=== PATIENT | male | born 1955 | race Caucasian/White ===

== ENCOUNTER 2022-02-25 09:32 | Inpatient (IN) ==
--- NOTE | 2022-02-19 13:22 | PAT Medication Instructions ---
Medication Instructions Date of Service February 19, 2022 Home Medications amiodarone 200 mg tablet 200 mg PO QAM apixaban 5 mg tablet (Eliquis) 5 mg PO BID aspirin 81 mg tablet,delayed release 81 mg PO QAM fenofibrate 40 mg tablet 48 mg PO QAM gabapentin 300 mg tablet 300 mg PO UD PRN magnesium oxide 400 mg PO QAM metoprolol succinate 25 mg tablet,extended release 24 hr 25 mg PO QAM omeprazole 40 mg capsule,delayed release 40 mg PO QAM potassium chloride 20 mEq oral packet 20 meq PO BID torsemide 20 mg tablet 60 mg PO QAM ASK your prescriber and surgeon apixaban 5 mg tablet (Eliquis) 5 mg PO BID aspirin 81 mg tablet,delayed release 81 mg PO QAM STOP taking 48 hours before surgery fenofibrate 40 mg tablet 48 mg PO QAM DO NOT take the morning of surgery magnesium oxide 400 mg PO QAM potassium chloride 20 mEq oral packet 20 meq PO BID torsemide 20 mg tablet 60 mg PO QAM Take morning of surgery With a small sip of water, OTHERWISE NOTHING TO EAT OR DRINK AFTER MIDNIGHT: amiodarone 200 mg tablet 200 mg PO QAM gabapentin 300 mg tablet 300 mg PO UD PRN (if needed) metoprolol succinate 25 mg tablet,extended release 24 hr 25 mg PO QAM omeprazole 40 mg capsule,delayed release 40 mg PO QAM Take evening before surgery gabapentin 300 mg tablet 300 mg PO UD PRN (if needed) potassium chloride 20 mEq oral packet 20 meq PO BID Other Notes If you have any questions please call us at [phone] or [phone] or [phone] or [phone]
--- NOTE | 2022-02-21 12:57 | Anesthesiology Consultation ---
Date of Service February 21, 2022 Assessment & Plan (1) Encounter for pre-operative examination: - COVID screening: Per assessment on 02/21: No known COVID-19 positive contacts or current COVID-19 related symptoms. Travel screen negative. Patient vaccinated. Patient was Covid positive 01/30/22 (cepheid test scanned into [employer]; was asymptomatic, tested during hospitalization at [facility]). Preop Covid test done 02/21/22 at [facility] was negative. - Cardiology office visit (02/12/22): "Pt was admitted recently with A. fib/RVR, acute combined HF, cardiogenic shock requiring pressor for diuresis and C ovid19. Pt was also found to have large infrarenal AAA was referred to [place] for surgery as outpt. He was also found to have small lung nodule, which PCP is following. He is off of his MERISSA and spironolactone due to TAMARA. He was not discharged on his statin (I suspect due to elevated LFTs which are gradually improving). His JERONIMO is at baseline. His weight and edema have been stable since discharge.. A. fib, persistent. I was previously considering cardioversion once he was on the amiodarone, but that would push back his surgery another 4 weeks before A/C could be held. His rate is relatively controlled today, so I will keep the amiodarone on board for some rate control since BB cannot be increased due to hypotension.. We will switch his BB back to metoprolol succinate for his ICM." - Cardiology note (02/19/22): "Pt is high risk for surgery given prior large MT, ischemic CM, A. fib, but did have recent negative stress test and appears as medically optimized as possible for surgery." - Eliquis instructions per surgeon/prescriber - Case reviewed with Dr. Stout/Dr. Taylor. He feels that patient is okay to proceed with given procedure as scheduled. Chart Review Chart Review: Acceptable Risk for Surgery and Patient seen in Pre Admission Testing Teaching & Discussion Pre-Anesthesia Teaching/Discussion Notes: Instructed NPO after midnight before surgery,except medications with 15 cc of water. Medication instructions provided according to the PAT guidelines. History Surgery Operation Date: 02/25/22 11:00 Proposed Procedures p Percutaneous Endovascular Aneurysm Repair - Gabe Russell MD Height/Weight Height: 5 ft 11 in Weight: 88.5 kg Allergies Allergy/AdvReac Type Severity Reaction Status Date / Time shellfish derived Allergy Unknown Rash Verified 02/25/22 10:00 Medications Home Medications Medication Instructions Recorded Confirmed Last Taken amiodarone 200 mg tablet 200 mg PO QAM 02/19/22 02/25/22 02/25/22 06:30 apixaban 5 mg tablet (Eliquis) 5 mg PO BID 02/19/22 02/25/22 02/22/22 aspirin 81 mg tablet,delayed 81 mg PO QAM 02/19/22 02/25/22 02/22/22 release fenofibrate 40 mg tablet 48 mg PO QAM 02/19/22 02/25/22 02/23/22 gabapentin 300 mg tablet 300 mg PO UD PRN 02/19/22 02/25/22 02/24/22 21:00 magnesium oxide 400 mg PO QAM 02/19/22 02/25/22 02/24/22 09:00 metoprolol succinate 25 mg 25 mg PO QAM 02/19/22 02/25/22 02/25/22 06:30 tablet,extended release 24 hr omeprazole 40 mg capsule,delayed 40 mg PO QAM 02/19/22 02/25/22 02/25/22 06:30 release potassium chloride 20 mEq oral 20 meq PO BID 02/19/22 02/25/22 02/24/22 21:00 packet torsemide 20 mg tablet 60 mg PO QAM 02/19/22 02/25/22 02/24/22 09:00 prednisone 50 mg tablet 50 mg PO DIRECTED 02/25/22 02/25/22 02/24/22 22:30 Active Medications Generic Name Dose Route Start Last Admin Trade Name Freq PRN Reason Stop Dose Admin Lactated Ringer's 1,000 mls @ 80 mls/hr 02/25/22 06:00 02/25/22 10:34 Lr IV 02/25/22 18:29 80 mls/hr .[id number] CHEVY Administration Past Medical History Medical History Abdominal aortic aneurysm 6.2cm Acid reflux Afib Cardiomyopathy Gastritis History of COVID-19 Covid positive ([facility] 01/30/22; cepheid test scanned into [employer]) > asymptomatic HTN (hypertension) Hyperlipidemia Valvular heart disease s/p bioprosthetic AVR (2016) Exercise / Class Metabolic Activity III < 4 Walking/Shop/Light housework (No CP with daily activities (uses walker PRN)) Past Surgical History Surgical History History of aortic valve replacement 2016 ([facility]) History of appendectomy History of cardioversion X2 - MOST RECENT NOV 2021 History of endoscopy History of hernia surgery MULTIPLE History of rotator cuff surgery RIGHT Past Anesthesia History No Hx of Anesthesia Complications and No Family Hx of Anesthesia Complications History of PONV No Hx of PONV and No Hx of Motion Sickness Social History Smoking Status: Never smoker Do You Dip or Chew Tobacco: No Hx Alcohol Use: No substance use type: does not use Review of Systems Patient denies chest pain, fever, chills, cough, wheezing, palpitations. Physical Exam Vital Signs Last Vital Signs Temp 36.6 C 02/25/22 10:05 Pulse 116 H 02/25/22 10:05 Resp 24 02/25/22 10:05 BP 107/72 02/25/22 10:05 Pulse Ox 94 02/25/22 10:05 VITALS BP 97/57 P 83 TEMP WNL SP02 95%RA RESP 22 PHYSICAL Full cervical extension range of motion. Full TMJ range of motion. TMD 4 finger breaths Mallampati Score 2 Dentition: edentulous Lungs: clear throughout to auscultation Cardiac: regular rate, irregular rhythm, no murmurs noted Spine: normal Carotid arteries: negative bruit Extremities: no edema Visibly dyspneic on exam Lab Results Anesthesia Preop Results Results Anesthesia Widget: WBC 11.21 K/uL (4.8-10.8) H 02/21/22 Hgb 16.7 g/dL (14.0-18.0) 02/21/22 Hct 51.3 % (42-52) 02/21/22 Plt 225 K/uL (130-400) 02/21/22 Na 134 mmol/L (136-145) L 02/21/22 K 4.9 mmol/L (3.5-5.1) 02/21/22 Cl 96 mmol/L (98-107) L 02/21/22 CO2 29 mmol/L (21-32) 02/21/22 BUN 28 mg/dl (6-23) H 02/21/22 Creat 1.46 mg/dl (0.6-1.4) H 02/21/22 Glucose Level 117 mg/dl (70-99(Fasting)) H 02/21/22 PT 12.2 Seconds (9.0-12.0) H 02/21/22 PTT 32.5 Seconds (21.0-31.0) H 02/21/22 INR 1.2 (0.9-1.1) H 02/21/22 SARS-CoV-2, RNA, NAAT NEGATIVE (NEGATIVE) 02/25/22 Blood Type AB Positive 02/25/22 Antibody Screen NEGATIVE 02/25/22 Lab Comments: Coags mildly elevated (pt taking Eliquis). At anesthesiologist discretion AM DOS if recheck levels needed. Testing Laboratory Results Blood Type AB Positive 02/25/22 10:13 Antibody Screen NEGATIVE 02/25/22 10:13 Electrocardiogram Date: 02/12/22 A. fib with RVR with PVC sees or aberrantly conducted complexes at 107 bpm. Nonspecific IVCD. Inferior infarct (cited on or before 01/25/2020). Anterior lateral infarct (cited on or before 01/25/2020). Nuclear stress echo done subsequently on 02/14/2022. Stress test was consistent with prior infarct similar to previous exam. And markedly reduced ejection fraction compared to prior study. No significant reversible ischemia was noted. Chest X-Ray Date: 02/21/22 FINDINGS: PA and lateral chest radiographs are obtained No prior studies are available for comparison at the time of dictation. The heart is enlarged noting atherosclerotic calcification of the thoracic aorta. There is evidence of previous cardiac valve surgery. The pulmonary vasculature is noncongested. Enlargement of the central pulmonary arteries suggests pulmonary artery hypertension. Emphysematous change is noted. Nonspecific interstitial thickening is likely chronic. Foci of scarring/atelectasis are seen throughout both lungs. No airspace consolidation or pleural effusion is identified. Indeterminant nodular opacities are suggested at both lung bases. There is no pneumothorax. The skeletal structures are osteopenic. The bony thorax appears intact. IMPRESSION:. Cardiomegaly and emphysema with no acute cardiopulmonary abnormality. Indeterminate nodular opacities are questioned at both lung bases. Follow-up chest CT is recommended for further assessment. Per cardiology records, known pulmonary nodules under surveillance by PCP. Will forward report to PCP for continuity of care. Echocardiogram Date: 01/17/22 LVEF <20%. LV cavity size is moderately to severely increased. Mild hypokinesis of the mid basilar inferoanterior lateral wall seen; otherwise rest of wall severely hypokinetic. Severe RAD. Severe LAD. Moderate MR. Severe TR. Bioprosthetic aortic valve in good position. Leaflets somewhat seen with adequate mobility. Hemodynamics suggest against significant stenosis/regurgitation. Stress Test Date: 02/14/22 Type: nuclear No reversible ischemia seen. Large perfusion abnormality consistent with prior infarct. Rest EF 21%. Diffuse HK. Cardiac Catheterization Date: 04/07/16 Two vessel CAD. Patient to maximize medical therapy.
[~2022-02-25 09:32] MED LIST: LACTATED RINGER'S 1,000 ML IV SCH; ceFAZolin 2000MG 2,000 MG/15 ML SYR IV SCH
[2022-02-25] MEDS ORDERED: fentaNYL citrate 100 MCG/2 ML VIAL IV PRN (12:12)
[2022-02-25] MEDS ORDERED: ONDANSETRON INJ 2 MG/ML 2 ML VIAL IV PRN ×3 (12:12→20:02)
[2022-02-25] MEDS ORDERED: ATROPINE SULFATE 0.1 MG/ML 10ML SYR IV PRN (12:12)
--- NOTE | 2022-02-25 12:16 | History & Physical Report ---
Date of Service February 25, 2022 History of Present Illness Primary Care Provider: NO PCP February 11, 2022 Name: NAT LORENZ [facility] Number: [id number] : 1955 Date of Service: 02/11/2022 Nat Lowry MD [address] [place] [address] Lowry: I had the pleasure of seeing Mr. Nat Lorenz in the Vascular Surgery. Patient is a new patient in consultation for abdominal aortic aneurysm. As you know, this is a very pleasant 66-year-old gentleman who was recently hospitalized at [place] for heart failure exacerbation and atrial fibrillation with rapid ventricular rate. During his hospitalization, he underwent a CT scan of his abdomen. This revealed a 6.2 cm infrarenal abdominal aortic aneurysm. He presents today to discuss repair. He indicates that his recent hospitalization was the 1st time he had heard that he had abdominal aortic aneurysm. He denies abdominal pain or back pain. He indicates that he does have some early fullness with eating. However, he denies postprandial abdominal pain. PAST MEDICAL HISTORY: Notable for atrial fibrillation, COPD (not on home oxygen), hypertension, hyperlipidemia, congestive heart failure, gastroesophageal reflux disease. The patient denies history of chronic kidney disease. However, per review of his records from his recent hospitalization, his creatinine had been elevated to 1.3 to 1.6. It is unclear if what his b aseline status is. However, he was treated for acute kidney injury during the hospitalization. During his hospital stay, he was treated for acute kidney injury and was noted to have what was called an asymptomatic COVID infection that was diagnosed on January 28 with a positive COVID test. SURGICAL HISTORY: Notable for a porcine aortic valve replacement in 2016. He underwent a right rotator cuff repair previously. He reports that he had 9 abdominal hernias repaired. In regard to his family history, he denies history of aneurysms or history of sudden in his family. His father suffered from heart disease. In regard to his social history, he lives with his and his daughter. They live in [place]. His is present for today's evaluation. He is a former smoker with a 60+ pack-year history. He denies alcohol or recreational drug use. He indicates that he has never been a heavy drinker. The patient does endorse an allergy to shellfish. He denies any medication allergies. He indicates that he has never had issues with intravenous contrast in the past. In regard to his home medications, he is on amiodarone, Eliquis (atrial fibrillation), aspirin 81 mg daily, fenofibrate, gabapentin, magnesium oxide, metoprolol, omeprazole, potassium chloride, and torsemide. PHYSICAL EXAMINATION: The oxygen saturation is 97% on room air. His heart rate is 100. His blood pressure is 110/68 on the right and 100/64 on the left. He is accompanied to today's visit by his , who remains in the room for the duration of the interview and examination. He appears anxious and does have some labored breathing with speaking after speaking a few sentences; however, he is awake, alert, and responds to questions appropriately. He is on room air. His pulse is irregular. His abdomen is soft, nontender, nondistended. His bilateral groins are free of rashes. He has palpable femoral pulses bilaterally. His bilateral legs display hyperpigmentation and significant pitting edema. There are a few superficial wounds with some scant serous drainage. I am able to palpate dorsalis pedis pulses bilaterally. Motor and sensory examinations of the bilateral lower extremities are intact. On review of his CT scan, which was performed at [place], this displays an infrarenal abdominal aortic aneurysm which is 6.2 cm in its greatest dimension. There appears to be an adequate neck below the renal arteries for an endograft. The common iliac arteries also do both display adequate landing zone for an endograft bilaterally. In summary, this is a 66-year-old male with an asymptomatic infrarenal abdominal aortic aneurysm which measures 6.2 cm. We discussed endovascular repair with the patient today and he wishes to proceed. 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 Additionally, we would like to check his kidney function and have ordered labs for today. He will need to hold his Eliquis for 48 hours prior to the procedure. Sincerely, I saw and evaluated the patient. Discussed with the resident and agree with the resident's findings and plan as documented in the resident's note. Signature Line Electronic Signature on File Sherin Carter MD Author Signature Dt/Tm: 02/13/2022 10:00 AM Resident Division of Vascular Surgery Electronically Reviewed/Signed by: Gabe Russell MD Cosigner Signature Dt/Tm: 02/13/2022 10:24 AM Paint Line Operator Chad Johansen [facility] [place] [address] [address], [address] [place] [address] ST /CO Result Type: .Outpt Ltr Date of Service: February 11, 2022 00:00 EDT Authorization Status: Final Author or Import Date: MD Emma, Sherin on February 11, 2022 14:49 EDT Verified By: MD Yvonne, Gabe Matias on February 13, 2022 10:24 EDT Encounter info: [id number], [place] [address], Clinic, 02/11/2022 - 02/11/2022 Contributor system: [email or web address] Allergies Allergy/AdvReac Type Severity Reaction Status Date / Time shellfish derived Allergy Unknown Rash Verified 02/25/22 10:00 Home Medications Medication Instructions Recorded Confirmed Type amiodarone 200 mg tablet 200 mg PO QAM 02/19/22 02/25/22 History apixaban 5 mg tablet (Eliquis) 5 mg PO BID 02/19/22 02/25/22 History aspirin 81 mg tablet,delayed 81 mg PO QAM 02/19/22 02/25/22 History release fenofibrate 40 mg tablet 48 mg PO QAM 02/19/22 02/25/22 History gabapentin 300 mg tablet 300 mg PO UD PRN 02/19/22 02/25/22 History magnesium oxide 400 mg PO QAM 02/19/22 02/25/22 History metoprolol succinate 25 mg 25 mg PO QAM 02/19/22 02/25/22 History tablet,extended release 24 hr omeprazole 40 mg capsule,delayed 40 mg PO QAM 02/19/22 02/25/22 History release potassium chloride 20 mEq oral 20 meq PO BID 02/19/22 02/25/22 History packet torsemide 20 mg tablet 60 mg PO QAM 02/19/22 02/25/22 History prednisone 50 mg tablet 50 mg PO DIRECTED 02/25/22 02/25/22 History Past Med/Surg History Medical History Abdominal aortic aneurysm 6.2cm Acid reflux Afib Cardiomyopathy Gastritis History of COVID-19 Covid positive ([facility] 01/30/22; cepheid test scanned into [employer]) > asymptomatic HTN (hypertension) Hyperlipidemia Valvular heart disease s/p bioprosthetic AVR (2015) Surgical History History of aortic valve replacement 2016 ([facility]) History of appendectomy History of cardioversion X2 - MOST RECENT NOV 2021 History of endoscopy History of hernia surgery MULTIPLE History of rotator cuff surgery RIGHT Social History Smoking Status: Never smoker Do You Dip or Chew Tobacco: No; Hx Alcohol Use: No Preferred Language: Mohawk Communication Ability: Effective City Council Member Required: No Beliefs That Will Affect Care: None Current Living Situation: Spouse and Family Other Information That Helps Us Care for You: No Feels Safe at Home: Yes Assistive Devices: Glasses Results & Data ([facility]) Vital Signs (Past 12 Hours) Vital Signs Temp Pulse Resp BP BP Pulse Ox 02/25/22 10:05 36.6 C 116 H 24 111/87 107/72 94
[2022-02-25] MEDS ORDERED: LIDOCAINE 2% 2 ML VIAL/AMP(20MG/ML) INFIL ONE (12:21)
[2022-02-25] MEDS ORDERED: HYDROCORTISONE SOD 100 MG in SYRINGE 0 ML IV STA (12:21)
[2022-02-25] MEDS ORDERED: PROPOFOL IV EMULSION 10 MG/ML 20 ML VIAL IV ONE (12:21)
[2022-02-25] MEDS ORDERED: ONDANSETRON INJ 2 MG/ML 2 ML VIAL ONE (12:21)
[2022-02-25] MEDS ORDERED: ROCURONIUM BROMIDE 10 MG/ML 5 ML VIAL IV ONE (12:21)
[2022-02-25] MEDS ORDERED: fentaNYL citrate 100 MCG/2 ML VIAL ONE (12:22)
[2022-02-25] MEDS ORDERED: MIDAZOLAM HCL 1 MG/ML 2ML VIAL ONE (12:22)
[2022-02-25] MEDS ORDERED: HEPARIN SOD (PORCINE) 1000 UNIT/ML ONE ×2 (14:04→16:46)
[2022-02-25] MEDS ORDERED: PHENYLEPHRINE HCL 10 MG/ML VIAL ONE ×2 (14:04→14:40)
[2022-02-25] MEDS ORDERED: ETOMIDATE 2 MG/ML 20 ML VIAL IV ONE (14:06)
[2022-02-25] MEDS ORDERED: VISIPAQUE IV PRN (15:30)
[2022-02-25] MEDS ORDERED: ARISTA ABSORBABLE HEMOSTAT 3GM TOP ONE (15:31)
[2022-02-25] MEDS ORDERED: GELATIN SPONGE SZ 100 ONE (16:08)
[2022-02-25] MEDS ORDERED: THROMBIN FOR SOLN 20000 UNIT KIT ONE (16:08)
[2022-02-25] MEDS ORDERED: THROMBIN 5000 UNITS KIT TOP ONE (16:10)
[2022-02-25] MEDS ORDERED: GELATIN SPONGE SZ 100 EXT ONE (16:13)
[2022-02-25] MEDS ORDERED: NEOSTIGMINE METHYLSULFATE 1 MG/ML 10ML VIAL ONE (16:41)
[2022-02-25] MEDS ORDERED: GLYCOPYRROLATE 0.2 MG/ML VIAL ONE (16:41)
[2022-02-25] MEDS ORDERED: MoRPHine SULFATE 4 MG/ML 1 ML CARP\\VIAL IV PRN (16:56)
[2022-02-25] MEDS ORDERED: oxyCODONE/ACETAMINOPHEN 5mg/325mg TAB PO PRN (16:56)
[2022-02-25] MEDS ORDERED: NON-FORMULARY MEDICATION (Gabapentin 300 mg Tablet) PO PRN (17:01)
--- NOTE | 2022-02-25 17:07 | Procedure Note ---
Angiogram Post Procedure Fluoroscopy Time (minutes): 17 Radiation (mGy): 274.61 Contrast: 110cc Post Operative Report Pre & Post Diagnosis Operation Date: 02/25/22 11:00 Pre-Op Diagnosis: Abdominal Aortic Aneurysm Post-Op Diagnosis: Abdominal Aortic Aneurysm I identified the patient and participated in the time-out.: Yes Procedure Operation Date: 02/25/22 11:00 Actual Procedures p Percutaneous Endovasular Anerurysm Repair, mechanical closure right femoral artery, exploration of left groin, interposition graft to left common femoral artery with prosthetic(Bilateral) - Gabe Russell MD Surgeon Gabe Russell MD Gas Welder Sherin Saleem MD Estimated Blood Loss 50 Findings Consistent with Post-Op Diagnosis Specimens none Anesthesia Type General Complications none immediate Disposition Accompanied Patient To Recovery: No Disposition: Recovery Room Indications Anil Lorenz is a very pleasant 66-year-old gentleman who was recently hospitalized at [facility] for heart failure exacerbation and atrial fibrillation with rapid ventricular rate. During his hospitalization, he underwent a CT scan of his abdomen. This revealed a 6.2 cm infrarenal abdominal aortic aneurysm. He presents today for endovascular repair of his abdominal aortic aneurysm. Description of Procedure The patient was taken to the endovascular suite. He was transferred over to the angiography table and placed in the supine position. The bilateral groins were prepped and draped in the usual sterile fashion. A team timeout was performed. Under ultrasound guidance the right common femoral artery was accessed with an 18G needle. A J wire was advanced through this. The needle was removed. A small aaron in the skin was made around the wire. A 5F sheath was advanced over the wire. The 5F sheath was removed and a total of three proglide perclose devices were pre-deployed in the access site at the 12 o'clock, 2 o'clock, and 10 o'clock positions. The third device was placed because the first (at the 10 o'clock position) gave a jump during deployment and we were concerned for maldeployment of the device. After the perclose devices were pre deployed an angled glidewire was advanced into the descending thoracic aorta and a short 8F sheath was placed in the right groin. A kumpe catheter was advanced over the wire. The glidewire was removed and a aniceto wire was placed through the catheter. The catheter was removed. Under ultrasound guidance the right common femoral artery was accessed with an 18G needle. A J wire was advanced through this. The needle was removed. A small aaron in the skin was made around the wire. A 5F sheath was advanced over the wire. The 5F sheath was removed and we attempted to place perclose devices but they would not advance into the artery. We tried using a stiffer wire and tried dilating the tract with 6F and 8F sheaths but could not get the perclose device to advance into the artery. The decision was made to cut down on the artery. An approximately 7cm incision in the left groin was made proximally and distally to the sheath. We deepened the incision through the subcutaneous tissues. As we went deeper we encountered quite a significant amount of scar tissue. We did see a few prolene sutures as well. As we approached the artery we noted that our 8F sheath was inserted in the center of a dacron pledget on the anterior wall of the artery, which we felt did explain the failure of the proglide device to pass through the arteriotomy. The proximal and distal common femoral artery were dissected out and slung with rubber vessel loops. The patient was administered systemic heparinization and the vessel loops were pulled tight to occlude the artery. A glidewire was advanced through the sheath into the descending thoracic aorta. A Kumpe catheter was advanced over the glidewire. The glidewire was exchanged for a aniceto wire. The kumpe catheter was removed and a 12F dry seal sheath was advanced into the infrarenal abdominal aorta. On the right we dilated our arterial access using a 12F sheath then a 16F sheath and ultimately placed our 18F dry seal sheath with its tip in the infrarenal aorta. Our main body of our endograft was advanced up the right side into the aorta (Odell 26x14.5x16). A pigtail catheter was advanced on the left side and the wire removed. Power injection was used to image the aorta and bobbi the renal arteries. Our main body of our graft was deployed and repeat power injection s howed it was below both renal arteries. We then cannulated our contralateral gate from the left using a JB2 catheter. The contralateral limb was deployed (Odell 16 x 14.5 x 14) and the ipsilateral limb from the main body of the graft was opened up. The proximal portion of the main body of the graft, the left limb at the gate and at its distal fixation, and the right limb at its distal fixation were ballooned with a Q50 balloon to ensure good stent apposition. Post deployment angiography showed the graft in good position with no type I or III endoleaks and patent renal arteries and hypogastric arteries bilaterally. We then removed our catheter and wire and sheath from the right side and deployed our proglide devices. There was minimal bleeding from the access site and this resolved with about 5 minutes of manual pressure. On the left side we removed our sheath and placed vascular clamps proximally and distally. Where the sheath had gone into the artery the lateral hearn of the artery had been disrupted given the large sheath and small diseased artery. The access site was opened up with banuelos scissors above and below the arteriotomy and the edges of the artery were freshened. We did run a 6-0 prolene along the lateral wall of the artery as this had a longer disruption from the sheath. We then sewed in a bovine pericardial patch over the defect using a running 6-0 prolene suture. Unfortunately at the area of the access the artery was narrowed about 50% even with the patch in place. We then decided to place an interposition graft. This was a 6mm PTFE graft. This was sewn to the proximal and distal common femoral artery with a gore juan c cv5 suture. Prior to completion of the final anastomosis the arteries were allowed to forward and backbleed and the graft was flushed with heparinized saline. The final few stitches were placed for the anastomosis. Vascular clamps were removed. The anastomoses were hemostatic. There was a pulse distal to the bypass in the superficial femoral artery. The left groin cutdown was closed with three layers of 2-0 vicryl suture. The dermis was closed with running 3-0 vicryl suture. The skin was closed with fracisco. A provena wound vac was placed over the incision. The patient tolerated the procedure well and without immediate complication. Dr. Russell was present and scrubbed for the entirety of the procedure. At the conclusion of the case all needle, sponge, and instrument counts were correct. The patient was taken to the recovery room in satisfactory condition. I attest to the content of the Intraoperative Record and any orders documented therein. Any exceptions are noted below.
--- NOTE | 2022-02-25 17:08 | Post Operative Brief Note ---
Immediate Post Op Note v1 Date of Surgery February 25, 2022 Pre & Post Diagnosis Operation Date: 02/25/22 11:00 Pre-Op Diagnosis: Abdominal Aortic Aneurysm Post-Op Diagnosis: Abdominal Aortic Aneurysm I identified the patient and participated in the time-out.: Yes Procedure Operation Date: 02/25/22 11:00 Actual Procedures p Percutaneous Endovasular Anerurysm Repair, mechanical closure right femoral artery, exploration of left groin, interposition graft to left common femoaral artery with prosthetic(Bilateral) - Gabe Russell MD Surgeon Gabe Russell MD Database Programmer MD Bandar Estimated Blood Loss 50 Findings Consistent with Post-Op Diagnosis Drains Delgado Catheter Anesthesia Type General Complications none Disposition Accompanied Patient To Recovery: No Disposition: Recovery Room
[2022-02-25 17:46] LABS: Hemoglobin 14.3 g/dL (14.0-18.0)
--- NOTE | 2022-02-25 18:02 | Anesthesiology Progress Note ---
Date of Service February 25, 2022 Anesthesia Post Procedure Vital Signs Vital Signs: Temp Pulse Pulse Resp BP BP Pulse Ox 02/25/22 18:00 37.0 C 87 20 99/74 L 102/68 92 02/25/22 17:50 88 22 105/80 107/73 94 02/25/22 17:40 92 H 18 111/85 113/78 94 02/25/22 17:30 98 H 18 105/80 107/72 105 H 02/25/22 17:23 36.4 C L 106 H 20 103/81 110/74 100 02/25/22 10:05 36.6 C 116 H 24 111/87 107/72 94 Transfer of Care Handoff Completed per policy Notes Mental Status: alert / awake / arousable Patient Amnestic to Procedure: Yes Nausea / Vomiting: adequately controlled Pain: adequately controlled Airway Patency, RR, SpO2: stable & adequate BP & HR: stable & adequate Hydration State: stable & adequate Anesthetic Complications: no major complications apparent and Pt Satisfied with anesthetic care Notes: The patient is awake and stable. He will be monitored overnight in the ICU. Sign out was given to the ICU attending.
[2022-02-25] MEDS: D5W AND 1/2NSS 1,000 ML IV SCH (19:00)
--- NOTE | 2022-02-25 19:09 | Critical Care Consultation ---
Date of Consultation February 25, 2022 Assessment & Plan (1) Abdominal aortic aneurysm: Impression: 67-year-old male presents to the ICU following a PVAR four 6.2 cm infrarenal aortic aneurysm. Patient admitted to ICU overnight for monitoring. Neuro - [facility] ICU: Negative Cardiac - Infrarenal aortic aneurysmpostop day 1 PVAr. Vascular surgery managing. Will follow recommendations -Hold Eliquis tonight -Avoid hypertension -Continuous monitoring in ICU HTNcontinue MTP A. fibcontinue amiodarone. Hold Eliquis following surgery Systolic heart failure systolicpatient with reduced EF of 20% on most recent echo -Patient does have history of bioprosthetic aortic valve which appears to be in -Continue torsemide, MTP, ASA -Follow-up EKG Respiratory - COPDno home meds seen on medical history. currently without labored breathing. Maintaining oxygen saturations on 2 L nasal cannula without labored breathing. -Continuous monitoring pulse ox GI - GERD RENAL/LYTES - CKD?Creatinine 1.46 on 02/21, unsure of patient's baseline. Was recently treated for TAMARA at outside hospital. -Continue with IV fluid resuscitation -Avoid nephrotoxins and maintain maps greater than 65. Renally adjust medications -Follow BMP in a.m. Replete electrolytes as indicated - Strict I's and O's ENDO - No history of diabetes or thyroid disease ICU hyperglycemic protocol HEME - No signs of bleeding at this time. Follow-up CBC in a.m. ID - Medication for infectious process at this time. Continue with empiric Ancef LINES/IV ACCESS - Peripheral IVs DVT PROPHYLAXIS - SCDs, hold anticoagulation following procedure Thank you for allowing us to participate in the care of this patient. Please refer to my attending physician's documentation for any further recommendations. (2) COPD (chronic obstructive pulmonary disease): (3) GERD (gastroesophageal reflux disease): (4) Afib: (5) Valvular heart disease: (6) Hyperlipidemia: (7) HTN (hypertension): History of Present Illness Attending Physician: Gabe Russell MD History of Present Illness Patient is a 67-year-old male with past medical history of A. fib, COPD, HTN, HLD, diastolic heart failure, GERD, and former smoker (60+ packs per year). Patient had recently been treated at [facility] for CHF exacerbation and A. fib with RVR, and was found to have a 6.2 cm infrarenal aortic aneurysm. Patient was seen by vascular surgery and was scheduled for a PVAR for which she now presents to the ICU postop day 1. On arrival to the ICU the patient is alert and oriented. He does complain of lower back and is currently receiving pain medications. He denies any headache, dizziness, visual changes, recent illness or fevers, sore throat, shortness of breath, cough, wheezing, chest pain, palpitations, abdominal pain, nausea or vomiting or diarrhea. He denies any swelling in the hands or feet. Patient to remain in ICU for monitoring following procedure overnight. Allergies Allergy/AdvReac Type Severity Reaction Status Date / Time shellfish derived Allergy Unknown Rash Verified 02/25/22 10:00 Home Medications Medication Instructions Recorded Confirmed Type amiodarone 200 mg tablet 200 mg PO QAM 02/19/22 02/25/22 History apixaban 5 mg tablet (Eliquis) 5 mg PO BID 02/19/22 02/25/22 History aspirin 81 mg tablet,delayed 81 mg PO QAM 02/19/22 02/25/22 History release fenofibrate 40 mg tablet 48 mg PO QAM 02/19/22 02/25/22 History gabapentin 300 mg tablet 300 mg PO UD PRN 02/19/22 02/25/22 History magnesium oxide 400 mg PO QAM 02/19/22 02/25/22 History metoprolol succinate 25 mg 25 mg PO QAM 02/19/22 02/25/22 History tablet,extended release 24 hr omeprazole 40 mg capsule,delayed 40 mg PO QAM 02/19/22 02/25/22 History release potassium chloride 20 mEq oral 20 meq PO BID 02/19/22 02/25/22 History packet torsemide 20 mg tablet 60 mg PO QAM 02/19/22 02/25/22 History prednisone 50 mg tablet 50 mg PO DIRECTED 02/25/22 02/25/22 History Patient History Medical History (Updated 02/25/22 @ 22:39 by TOSHIA Schmitt) Abdominal aortic aneurysm 6.2cm Acid reflux Afib Cardiomyopathy COPD (chronic obstructive pulmonary disease) Gastritis GERD (gastroesophageal reflux disease) History of COVID-19 Covid positive ([facility] 01/30/22; cepheid test scanned into NONO) > asymptomatic HTN (hypertension) Hyperlipidemia Valvular heart disease s/p bioprosthetic AVR (2016) Surgical History History of aortic valve replacement 2016 ([facility]) History of appendectomy History of cardioversion X2 - MOST RECENT NOV 2021 History of endoscopy History of hernia surgery MULTIPLE History of rotator cuff surgery RIGHT Social History Smoking Status: Former smoker Cigarettes Per Day: 1 pack; Smoking End Date: 6 years ago; Second Hand Exposure: No; Do You Dip or Chew Tobacco: No (Former); Tobacco Cessation Education Requested by Patient: No Hx Alcohol Use: No Hx Substance Use: No Preferred Language: Italian Communication Ability: Effective Pen Or Pencil Assembly Machine Operator Required: No Beliefs That Will Affect Care: None Current Living Situation: Spouse Other Information That Helps Us Care for You: No Feels Safe at Home: Yes Safety Concerns: Feels Safe At This Time Assistive Devices: Glasses and Walker Review of Systems Review of Systems: All systems reviewed & are unremarkable except as noted in HPI & below Physical Exam Constitutional: cooperative and comfortable Eyes: PERRL, conjunctivae normal, anicteric sclerae ENMT: external ear and nose normal, oropharynx normal Neck: trachea midline, no thyromegaly Respiratory: normal respiratory effort, lungs clear to auscultation Cardiovascular: RRR, no murmur, no edema Heart Sounds: normal S1 and normal S2; no murmur Vessels: no JVD Extremities: no edema Gastrointestinal (Abdomen): normal bowel sounds, soft, nontender, no hepatosplenomegaly Musculoskeletal: no cyanosis or clubbing, extremities motor strength 5/5 Skin: no rashes, warm and dry Neurologic: PERRL, EOMI, accommodation nl, no face palsy, no dysarthria Psychiatric: A+Ox3, euthymic affect Results & Data Results & Data ([facility]) Vital Signs (Past 12 Hours) Vital Signs Temp Pulse Pulse Resp BP BP Pulse Ox 02/25/22 18:31 36.5 C 82 20 103/72 95 02/25/22 18:10 82 18 96/66 L 99/63 L 95 02/25/22 18:00 37.0 C 87 20 99/74 L 102/68 92 02/25/22 17:50 88 22 105/80 107/73 94 02/25/22 17:40 92 H 18 111/85 113/78 94 02/25/22 17:30 98 H 18 105/80 107/72 105 H 02/25/22 17:23 36.4 C L 106 H 20 103/81 110/74 100 02/25/22 10:05 36.6 C 116 H 24 111/87 107/72 94 Coding Level of Care Code 95883 Inpt Consult Level 3 Diagnoses COPD (chronic obstructive pulmonary disease) J44.9 GERD (gastroesophageal reflux disease) K21.9 Abdominal aortic aneurysm I71.4 Afib I48.91 Valvular heart disease I38 Hyperlipidemia E78.5 HTN (hypertension) I10
[2022-02-25] MEDS ORDERED: MoRPHine SULFATE 2 MG/ML CARP IV STA (19:20)
[2022-02-25] MEDS ORDERED: MoRPHine SULFATE 2 MG/ML CARP ONE (19:21)
[2022-02-25] MEDS: ceFAZolin 2000MG 2,000 MG/15 ML SYR IV SCH (20:21)
[2022-02-25] MEDS: POTASSIUM CHLORIDE PWD 20 MEQ PACK PO SCH (21:29)
[2022-02-26] MEDS: D5W AND 1/2NSS 1,000 ML IV SCH (03:03)
[2022-02-26] MEDS: ceFAZolin 2000MG 2,000 MG/15 ML SYR IV SCH (05:14)
[2022-02-26 05:19] LABS: Basophils # (auto) 0.01 K/uL (0-0.2); Basophils % (auto) 0.1 %; Eosinophils # (auto) 0.01 K/uL (0-0.5); Eosinophils % (auto) 0.1 %; Hematocrit (blood only) 40.9 % (42-52); Hemoglobin 13.2 g/dL (14.0-18.0); Immature Granulocytes # (auto) 0.08 K/uL (0.00-0.02); Immature Granulocytes % (auto) 0.5 %; Lymphocytes # (auto) 2.41 K/uL (1.2-3.4); Lymphocytes % (auto) 13.6 %; Mean Corpuscular Hemoglobin 26.3 pg (25-34); Mean Corpuscular Hgb Conc 32.3 g/dL (32-36); Mean Corpuscular Volume 81.6 fL (80-100); Monocytes # (auto) 1.71 K/uL (0.11-0.59); Monocytes % (auto) 9.6 %; Neutrophils # (auto) 13.54 K/uL (1.4-6.5); Neutrophils % (auto) 76.1 %; Platelet Count 201 K/uL (130-400); RDW Coefficient of Variation 18.1 % (11.5-14.5); Red Blood Count 5.01 M/uL (4.7-6.1); White Blood Count 17.76 K/uL (4.8-10.8)
[2022-02-26 05:35] LABS: BUN Creatinine Ratio 22.4 (10-20); Calcium 8.6 mg/dl (8.5-10.1); Creatinine Clr Calc Pharmacy 79.7 ml/min; Est GFR (African American) 83.4 ml/min; Potassium 4.2 mmol/L (3.5-5.1)
[2022-02-26] MEDS: ASPIRIN 81 MG ECTAB PO SCH (07:47)
[2022-02-26] MEDS: METOPROLOL SUCC 25MG EXT REL TAB PO SCH (07:48)
[2022-02-26] MEDS: MAGNESIUM OXIDE 400 MG TAB PO SCH (07:48)
[2022-02-26] MEDS: AMIODARONE 200 MG TAB PO SCH (07:48)
[2022-02-26] MEDS: APIXABAN 5 MG TABLET PO SCH ×2 (07:48→21:03)
[2022-02-26] MEDS: TORSEMIDE 20 MG TAB PO SCH (07:49)
[2022-02-26] MEDS: PANTOprazole 40 MG TAB PO SCH (07:49)
[2022-02-26] MEDS: POTASSIUM CHLORIDE PWD 20 MEQ PACK PO SCH ×2 (07:49→21:03)
[2022-02-26] MEDS ORDERED: FENOFIBRATE 40 MG PO SCH (09:00)
--- NOTE | 2022-02-26 09:47 | XRay Report ---
XR chest 1V portable HISTORY: Abnormal chest x-ray. Follow-up. COMPARISON: Chest 02/21/2022. FINDINGS: No pneumothorax. Cardiac silhouette is top normal in size. The upper lung zones are clear. Nodular density within the right midlung zone favors a nipple shadow. Small nodular density within th e left lower lobe adjacent to the cardiac apex persists. This may represent atelectasis or scarring. No new focal lung consolidations to suggest pneumonia. There are surgical clips overlying the right h ilum. No pleural effusions. Emphysema. IMPRESSION: 1. Persistent small nodular density at the base of the left lower lobe. Continued one month chest x-r ay follow-up recommended. 2. The right lung nodular density favors a nipple shadow. 3. Emphysema. ACT 112: Negative or not required by law. Electronically signed by: Rob Malave M.D. 02/26/2022 9:45 AM
--- NOTE | 2022-02-26 10:45 | Critical Care Progress Note ---
Date of Service February 26, 2022 Assessment & Plan (1) COPD (chronic obstructive pulmonary disease): (2) Abdominal aortic aneurysm: (3) Valvular heart disease: (4) GERD (gastroesophageal reflux disease): Plan: Impression: 67-year-old male presents to the ICU following a PVAR four 6.2 cm infrarenal aortic aneurysm. Patient admitted to ICU overnight for monitoring. Neuro - [facility] ICU: Negative Cardiac - Infrarenal aortic aneurysm02/25/22 PVAr. Vascular surgery managing. Will follow recommendations -Avoid hypertension HTNcontinue MTP A. fibcontinue amiodarone Systolic heart failure systolicpatient with reduced EF of 20% on most recent echo -Patient does have history of bioprosthetic aortic valve which appears to be in -Continue torsemide, MTP, ASA Respiratory - COPDno home meds seen on medical history. currently without labored breathing. Maintaining oxygen saturations on 2 L nasal cannula without labored breathing. -Start the patient on Anoro GI - GERD RENAL/LYTES - CKD?Creatinine 1.46 on 02/21, unsure of patient's baseline. Was recently treated for TAMARA at outside hospital. -Avoid nephrotoxins and maintain maps greater than 65. Renally adjust medications - Strict I's and O's ENDO - No history of diabetes or thyroid disease ICU hyperglycemic protocol HEME - No signs of bleeding at this time ID - Medication for infectious process at this time. Continue with empiric Ancef --Prophylaxis VTE: Apixaban GI: Protonix Lines: Right radial, peripheral Diet: Cardiac Plan: In/out: +3.4 L, urine output 900 mL DC IV fluids. Patient ejection fraction is on the lower side. I would not like the patient to be on any more IV fluids He is supposed to get torsemide 60 mg today. Keep a close eye on urine output. Consider a dose of Lasix on top of torsemide which is getting if the patient complains of shortness of breath Patient's blood pressure is on the softer side. This is chronically like this. Continue with O2 supplementation to keep oxygen saturation between 88-92%. Start the patient on Anoro to be used on a daily basis H&H is stable. DC arterial line and Delgado catheter prior to downgrade Patient seems to hemodynamically stable to be downgraded to medical floor Please note the above document was generated using voice recognition software. It may contain grammatical, syntax or spelling errors.Any formal questions or concerns about the content, text or information contained within the body of this dictation should be directly addressed to the provider for clarification. Admission and Anticipated Discharge Date Admission Date: February 25, 2022 Subjective Patient seen and examined at bedside. No acute distress, no episodes overnight Denies any headache, no shortness of breath, no nausea, no vomiting He says that he is doing well overnight comfortably Denies any abdominal pain. Fair appetite. Review of Systems Review of Systems: All systems reviewed & are unremarkable except as noted in HPI & below Physical Exam Physical Exam: Constitutional: No acute distress HEENT: EOMI, PERRLA Respiratory system: Decreased antibiotic, no wheeze, no rhonchi, positive crackles bilaterally CVS: S1-S2 positive, distant heart sounds Abdomen: Soft, nontender, nondistended, positive bowel sounds x4 Extremities: +2 pulses bilaterally radialis/ dorsalis pedis, no cyanosis, +1 pitting edema bilateral lower extremity Neuro: Awake alert oriented x3 Psych: Normal mood and affect G/U: Positive Delgado Left inguinal wound VAC in place Skin: no rashes, warm and dry Lymphatic: no cervical or axillary lymphadenopathy Results & Data Results & Data ([facility]) Vital Signs (Past 12 Hours) Vital Signs Temp Pulse Resp BP Pulse Ox 02/26/22 08:30 93 H 20 95 02/26/22 08:00 36.8 C 86 22 95 02/26/22 07:31 98 H 19 86/61 L 96 02/26/22 07:30 81 20 96 02/26/22 07:15 88 27 H 92/66 L 96 02/26/22 07:00 89 23 90/71 L 96 02/26/22 03:46 35.7 C L 84 14 95/61 L 97 02/26/22 03:40 91 H 22 97 02/26/22 03:31 88 24 97/73 L 97 02/26/22 03:30 91 H 22 97 02/26/22 03:20 84 12 97 02/26/22 03:15 87 18 101/71 97 02/26/22 03:10 89 14 96 02/26/22 03:00 81 23 93/74 L 96 02/26/22 02:50 83 14 98 02/26/22 02:45 83 16 93/74 L 97 02/26/22 02:40 90 13 97 02/26/22 02:30 89 16 92/68 L 96 02/26/22 02:20 84 11 L 97 02/26/22 02:15 88 15 88/67 L 97 02/26/22 02:10 82 14 96 02/26/22 02:00 83 17 98 02/26/22 01:50 89 14 97 02/26/22 01:45 90 12 97/78 L 97 02/26/22 01:40 89 17 96 02/26/22 01:30 88 15 100/74 97 02/26/22 01:20 92 H 13 97 02/26/22 01:15 86 16 95/81 L 97 02/26/22 01:10 93 H 21 96 02/26/22 01:01 94 H 14 95/80 L 97 02/26/22 01:00 87 12 96 02/26/22 00:50 90 11 L 97 02/26/22 00:40 92 H 11 L 98 02/26/22 00:31 101 H 12 100/83 99 02/26/22 00:30 97 H 12 99 02/26/22 00:20 95 H 13 97 02/26/22 00:15 97 H 13 93/80 L 99 02/26/22 00:10 94 H 16 99 02/26/22 00:00 96 H 18 104/87 100 02/25/22 23:58 35.7 C L 02/25/22 23:50 100 H 18 98 02/25/22 23:46 86 16 95/78 L 02/25/22 23:40 93 H 18 81 L 02/25/22 23:35 89 02/25/22 23:31 85 16 101/80 96 02/25/22 23:30 90 18 94 02/25/22 23:20 86 15 98 02/25/22 23:15 94 H 24 102/82 95 02/25/22 23:10 79 20 95 02/25/22 23:00 88 17 94/77 L 97 02/25/22 22:50 93 H 23 88 L 02/25/22 22:45 89 15 99/80 L 93 Laboratory Results 02/26/22 05:09 02/26/22 05:09 Coding Level [facility] Diagnoses COPD (chronic obstructive pulmonary disease) J44.9 Abdominal aortic aneurysm I71.4 Valvular heart disease I38 GERD (gastroesophageal reflux disease) K21.9
--- NOTE | 2022-02-26 13:14 | Surgery Progress Note ---
Date of Service February 26, 2022 Assessment & Plan (1) Abdominal aortic aneurysm: Plan: Pt now POD #1 after EVAR requiring L groin cutdown and femoral artery interposition graft. Pt overall doing well, but has been mildly tachycardic and hypotensive. Pt discussed with Dr Russell, advises IVF and change to PCU status for continued monitoring. Admission and Anticipated Discharge Date Admission Date: February 25, 2022 Subjective 67 yo m POD #1 after EVAR with L groin cutdown and interposition graft, seen in f/u today. Pt admits some L groin discomfort and states his back/buttocks are hurting from being in bed for so long. Denies JOSEPH, chest pain, SOB, N/V, leg pain, other complaints. Review of Systems Review of Systems: All systems reviewed & are unremarkable except as noted in HPI & below Physical Exam Constitutional: well developed, + thin, cooperative and comfortable; not in distress Respiratory: normal respiratory effort Auscultation: lungs clear to auscultation bilaterally and + diminished lung sounds Cardiovascular: Rate/Rhythm: + tachycardic Vessels: posterior tibial pulses present, dorsalis pedis pulses present and brachial pulses present; + abnormal peripheral pulses Extremities: normal capillary refill; no edema Gastrointestinal (Abdomen): Inspection/Auscultation: abdomen normal to inspection and normal bowel sounds Percussion/Palpation: abdomen soft; abdomen nontender Musculoskeletal: no cyanosis or clubbing, extremities motor strength 5/5 Skin: no rashes, warm and dry + incision (L groin incision prevena wound vac in place) Neurologic: moves all extremities and awake; no focal motor deficits and not confused Psychiatric: A+Ox3, euthymic affect Results & Data ([facility]) Vital Signs (Past 12 Hours) Vital Signs Temp Pulse Resp BP Pulse Ox 02/26/22 08:30 93 H 20 95 02/26/22 08:00 36.8 C 86 22 95 02/26/22 07:31 98 H 19 86/61 L 96 02/26/22 07:30 81 20 96 02/26/22 07:15 88 27 H 92/66 L 96 02/26/22 07:00 89 23 90/71 L 96 02/26/22 03:46 35.7 C L 84 14 95/61 L 97 02/26/22 03:40 91 H 22 97 02/26/22 03:31 88 24 97/73 L 97 02/26/22 03:30 91 H 22 97 02/26/22 03:20 84 12 97 02/26/22 03:15 87 18 101/71 97 02/26/22 03:10 89 14 96 02/26/22 03:00 81 23 93/74 L 96 02/26/22 02:50 83 14 98 02/26/22 02:45 83 16 93/74 L 97 02/26/22 02:40 90 13 97 02/26/22 02:30 89 16 92/68 L 96 02/26/22 02:20 84 11 L 97 02/26/22 02:15 88 15 88/67 L 97 02/26/22 02:10 82 14 96 02/26/22 02:00 83 17 98 02/26/22 01:50 89 14 97 02/26/22 01:45 90 12 97/78 L 97 02/26/22 01:40 89 17 96 02/26/22 01:30 88 15 100/74 97 02/26/22 01:20 92 H 13 97 02/26/22 01:15 86 16 95/81 L 97 02/26/22 01:10 93 H 21 96
[2022-02-26] MEDS: UMECLIDINIUM/VILANTEROL 62.5/25MCG 7 PUFFS/INHALER INH SCH (14:14)
[2022-02-26] MEDS: SODIUM CHLORIDE 0.9% 1000ML 1,000 ML IV SCH ×2 (14:14→16:42)
--- NOTE | 2022-02-27 05:58 | Electrocardiogram Report ---
Test Reason : Blood Pressure : / mmHG Vent. Rate : 080 BPM Atrial Rate : 394 BPM P-R Int : 000 ms QRS Dur : 122 ms QT Int : 458 ms P-R-T Axes : 000 076 133 degrees QTc Int : 528 ms Atrial fibrillation with premature ventricular or aberrantly conducted complexes Inferolateral infarct Non-specific intra-ventricular conduction block Abnormal ECG No previous ECGs available Confirmed by Claudy Vera ([id number]) on 02/27/2022 5:58:05 AM Referred By: Gabe Russell Confirmed By:Claudy Vera
[2022-02-27 06:04] LABS: Basophils # (auto) 0.02 K/uL (0-0.2); Basophils % (auto) 0.2 %; Eosinophils # (auto) 0.09 K/uL (0-0.5); Eosinophils % (auto) 0.8 %; Hematocrit (blood only) 38.5 % (42-52); Hemoglobin 12.5 g/dL (14.0-18.0); Immature Granulocytes # (auto) 0.08 K/uL (0.00-0.02); Immature Granulocytes % (auto) 0.7 %; Lymphocytes # (auto) 2.12 K/uL (1.2-3.4); Lymphocytes % (auto) 18.6 %; Mean Corpuscular Hemoglobin 26.1 pg (25-34); Mean Corpuscular Hgb Conc 32.5 g/dL (32-36); Mean Corpuscular Volume 80.4 fL (80-100); Mean Platelet Volume 11.2 fL (7.4-10.4); Monocytes # (auto) 1.51 K/uL (0.11-0.59); Monocytes % (auto) 13.2 %; Neutrophils # (auto) 7.59 K/uL (1.4-6.5); Neutrophils % (auto) 66.5 %; Platelet Count 168 K/uL (130-400); RDW Coefficient of Variation 18.2 % (11.5-14.5); Red Blood Count 4.79 M/uL (4.7-6.1); White Blood Count 11.41 K/uL (4.8-10.8)
[2022-02-27 06:18] LABS: Calcium 8.2 mg/dl (8.5-10.1); Creatinine Clr Calc Pharmacy 71.4 ml/min; Est GFR (African American) 74.1 ml/min; Est GFR (Non-African American) 63.9 ml/min; Potassium 3.8 mmol/L (3.5-5.1)
[2022-02-27] MEDS: APIXABAN 5 MG TABLET PO SCH (09:34)
[2022-02-27] MEDS: AMIODARONE 200 MG TAB PO SCH (09:34)
[2022-02-27] MEDS: ASPIRIN 81 MG ECTAB PO SCH (09:34)
[2022-02-27] MEDS: PANTOprazole 40 MG TAB PO SCH (09:35)
[2022-02-27] MEDS: TORSEMIDE 20 MG TAB PO SCH (09:35)
[2022-02-27] MEDS: MAGNESIUM OXIDE 400 MG TAB PO SCH (09:35)
[2022-02-27] MEDS: METOPROLOL SUCC 25MG EXT REL TAB PO SCH (09:35)
[2022-02-27] MEDS: POTASSIUM CHLORIDE PWD 20 MEQ PACK PO SCH (09:36)
[2022-02-27] MEDS: UMECLIDINIUM/VILANTEROL 62.5/25MCG 7 PUFFS/INHALER INH SCH (09:36)
--- NOTE | 2022-02-27 14:28 | Surgery Progress Note ---
Date of Service February 27, 2022 Assessment & Plan (1) Abdominal aortic aneurysm: Plan: Pt now POD #2 after EVAR requiring L groin cutdown and femoral artery interposition graft. Pt overall doing well. Discussed with Dr Russell today. Will d/c home. Admission and Anticipated Discharge Date Admission Date: February 25, 2022 Subjective 67 yo m POD #2 after EVAR with L groin cutdown and interposition graft, seen in f/u today. Pt admits some L groin discomfort but denies any other new complaints. Denies JOSEPH, chest pain, SOB, N/V, leg pain, other complaints. Review of Systems Review of Systems: All systems reviewed & are unremarkable except as noted in HPI & below Physical Exam Constitutional: well developed, + thin, cooperative and comfortable; not in distress Respiratory: normal respiratory effort Auscultation: lungs clear to auscultation bilaterally and + diminished lung sounds Cardiovascular: Rate/Rhythm: + tachycardic Vessels: posterior tibial pulses present, dorsalis pedis pulses present and brachial pulses present; + abnormal peripheral pulses Extremities: normal capillary refill; no edema Gastrointestinal (Abdomen): Inspection/Auscultation: abdomen normal to inspection and normal bowel sounds Percussion/Palpation: abdomen soft; abdomen nontender Musculoskeletal: no cyanosis or clubbing, extremities motor strength 5/5 Skin: no rashes, warm and dry + incision (L groin incision prevena wound vac in place. R groin without hematoma) Neurologic: moves all extremities and awake; no focal motor deficits and not confused Psychiatric: A+Ox3, euthymic affect Results & Data ([facility]) Vital Signs (Past 12 Hours) Vital Signs Temp Pulse Pulse Resp BP Pulse Ox 02/27/22 12:00 36.4 C L 100 H 23 93/74 L 93 02/27/22 09:31 36.2 C L 91 H 24 84/45 L 93 02/27/22 08:00 83 02/27/22 04:16 36.4 C L 83 16 99/67 L 96
--- NOTE | 2022-02-28 09:41 | Discharge Summary ---
Date of Service February 28, 2022 Admission HPI Per Admitting Provider February 11, 2022 Name: NAT LORENZ [facility] [place] Number: [id number] : 1955 Date of Service: 02/11/2022 Nat Lowry MD [address] [place] [address] Lowry: I had the pleasure of seeing Mr. Nat Lorenz in the Vascular Surgery. Patient is a new patient in consultation for abdominal aortic aneurysm. As you know, this is a very pleasant 66-year-old gentleman who was recently hospitalized at [place] for heart failure exacerbation and atrial fibrillation with rapid ventricular rate. During his hospitalization, he underwent a CT scan of his abdomen. This revealed a 6.2 cm infrarenal abdominal aortic aneurysm. He presents today to discuss repair. He indicates that his recent hospitalization was the 1st time he had heard that he had abdominal aortic aneurysm. He denies abdominal pain or back pain. He indicates that he does have some early fullness with eating. However, he denies postprandial abdominal pain. PAST MEDICAL HISTORY: Notable for atrial fibrillation, COPD (not on home oxygen), hypertension, hyperlipidemia, congestive heart failure, gastroesophageal reflux disease. The patient denies history of chronic kidney d isease. However, per review of his records from his recent hospitalization, his creatinine had been elevated to 1.3 to 1.6. It is unclear if what his baseline status is. However, he was treated for acute kidney injury during the hospitalization. During his hospital stay, he was treated for acute kidney injury and was noted to have what was called an asymptomatic COVID infection that was diagnosed on January 28 with a positive COVID test. SURGICAL HISTORY: Notable for a porcine aortic valve replacement in 2016. He underwent a right rotator cuff repair previously. He reports that he had 9 abdominal hernias repaired. In regard to his family history, he denies history of aneurysms or history of sudden in his family. His father suffered from heart disease. In regard to his social history, he lives with his and his daughter. They live in [place]. His is present for today's evaluation. He is a former smoker with a 60+ pack-year history. He denies alcohol or recreational drug use. He indicates that he has never been a heavy drinker. The patient does endorse an allergy to shellfish. He denies any medication allergies. He indicates that he has never had issues with intravenous contrast in the past. In regard to his home medications, he is on amiodarone, Eliquis (atrial fibrillation), aspirin 81 mg daily, fenofibrate, gabapentin, magnesium oxide, metoprolol, omeprazole, potassium chloride, and torsemide. PHYSICAL EXAMINATION: The oxygen saturation is 97% on room air. His heart rate is 100. His blood pressure is 110/68 on the right and 100/64 on the left. He is accompanied to today's visit by his , who remains in the room for the duration of the interview and examination. He appears anxious and does have some labored breathing with speaking after speaking a few sentences; however, he is awake, alert, and responds to questions appropriately. He is on room air. His pulse is irregular. His abdomen is soft, nontender, nondistended. His bilateral groins are free of rashes. He has palpable femoral pulses bilaterally. His bilateral legs display hyperpigmentation and significant pitting edema. There are a few superficial wounds with some scant serous drainage. I am able to palpate dorsalis pedis pulses bilaterally. Motor and sensory examinations of the bilateral lower extremities are intact. On review of his CT scan, which was performed at [place], this displays an infrarenal abdominal aortic aneurysm which is 6.2 cm in its greatest dimension. There appears to be an adequate neck below the renal arteries for an endograft. The common iliac arteries also do both display adequate landing zone for an endograft bilaterally. In summary, this is a 66-year-old male with an asymptomatic infrarenal abdominal aortic aneurysm which measures 6.2 cm. We discussed endovascular repair with the patient today and he wishes to proceed. He did request that he see his ordained minister prior to the procedures to ensure that he is optimized from a heart standpoint. Additionally, we would like to check his kidney function and have ordered labs for today. He will need to hold his Eliquis for 48 hours prior to the procedure. Sincerely, I saw and evaluated the patient. Discussed with the resident and agree with the resident's findings and plan as documented in the resident's note. Signature Line Electronic Signature on File Sherin Carter MD Author Signature Dt/Tm: 02/13/2022 10:00 AM Resident Division of Vascular Surgery Electronically Reviewed/Signed by: Gabe Russell MD Cosigner Signature Dt/Tm: 02/13/2022 10:24 AM [employer] Clerk Chad Johansen [facility] [address], [address] [place] [address] ST /CO Result Type: .Outpt Ltr Date of Service: February 11, 2022 00:00 EDT Authorization Status: Final Author or Import Date: MD Emma, Sherin on February 11, 2022 14:49 EDT Verified By: MD Yvonne, Gabe Matias on February 13, 2022 10:24 EDT Encounter info: [id number], [facility], Clinic, 02/11/2022 - 02/11/2022 Contributor system: [id number] Admission Exam Per Admitting Provider PHYSICAL EXAMINATION: The oxygen saturation is 97% on room air. His heart rate is 100. His blood pressure is 110/68 on the right and 100/64 on the left. He is accompanied to today's visit by his , who remains in the room for the duration of the interview and examination. He appears anxious and does have some labored breathing with speaking after speaking a few sentences; however, he is awake, alert, and responds to questions appropriately. He is on room air. His pulse is irregular. His abdomen is soft, nontender, nondistended. His bilateral groins are free of rashes. He has palpable femoral pulses bilaterally. His bilateral legs display hyperpigmentation and significant pitting edema. There are a few superficial wounds with some scant serous drainage. I am able to palpate dorsalis pedis pulses bilaterally. Motor and sensory examinations of the bilateral lower extremities are intact. Principal Diagnosis 1. s/p EVAR with L groin cutdown and femoral artery prosthetic interposition graft 2. AAA Discharge Exam Constitutional well developed, + thin, cooperative and comfortable; not in distress Respiratory normal respiratory effort Auscultation: lungs clear to auscultation bilaterally and + diminished lung sounds Cardiovascular Rate/Rhythm: + tachycardic Vessels: posterior tibial pulses present, dorsalis pedis pulses present and brachial pulses present; + abnormal peripheral pulses Extremities: normal capillary refill; no edema Gastrointestinal (Abdomen) Inspection/Auscultation: abdomen normal to inspection and normal bowel sounds Percussion/Palpation: abdomen soft; abdomen nontender Musculoskeletal no cyanosis or clubbing, extremities motor strength 5/5 Skin no rashes, warm and dry + incision (L groin incision prevena wound vac in place. R groin without hematoma) Neurologic moves all extremities and awake; no focal motor deficits and not confused Psychiatric A+Ox3, euthymic affect Discharge Data Allergies Allergy/AdvReac Type Severity Reaction Status Date / Time shellfish derived Allergy Intermediate Rash Verified 02/26/22 07:54 Consultations 02/25/22 16:56 Consult Licensed Acupuncturist Routine Procedures Performed Operation Date: 02/25/22 11:00 Actual Procedures p Percutaneous Endovasular Anerurysm Repair, mechanical closure right femoral artery, exploration of left groin, interposition graft to left common femoaral artery with prosthetic (Bilateral)(Bilateral) - Gabe Russell MD Ordered Studies 02/25/22 07:02 EV AAA repair aorta only Routine US EV guide vascular access Routine Hospital Course (1) Abdominal aortic aneurysm: Pt now POD #2 after EVAR requiring L groin cutdown and femoral artery interposition graft. Pt overall doing well. Discussed with Dr Russell today. Will d/c home with instructions to follow up with his PCP and ordained minister within 1 week. Total Time Total Time Spent Total Time Spent (In Minutes): 0 Discharge Plan Discharge Items Patient Disposition: Home - Self-Care Reason For Visit: POST OP PEVAR Discharge Diagnosis: 1. s/p EVAR with L groin cutdown and femoral artery interposition graft 2. AAA Condition on Discharge: Good Activity: Per Instructions section Non-emergency contact: Primary Care Provider and Surgeon Call non-emergency contact if: you have any medication questions, your pain is not controlled, your pain is concerning for you, your wound has increased redness and your wound has increased drainage Follow-up/Referrals: Gabe Russell MD [Physician] - (Follow up with Dr Russell or Jolly Mendoza PA-C, in 2 weeks for staple removal) Nat Lowry [Staff Physician] - (Follow up with PCP within 1 week.) PCP,NO [Primary Care Provider] - Diet: Heart Healthy Addtl Attending Provider Instructions: SPECIAL CARE INSTRUCTIONS: 1. L groin incisional wound vac can be removed when battery dies in the unit. Call office at [phone] if any concerns. 2. Follow up with your PCP and/or your ordained minister within 1 week. Medications: * Continue to take your medications as directed. Incision/Puncture Site Care: * You will have an incision or puncture in each of your groins. Liquid glue will be used to seal your incisions/puncture site. This will lift off as the incisions/puncture sites heal. * If Liquid glue is not used, there will be small dressings covering your incisions. After you get home, you may remove the dressings and shower - allowing the warm soapy water to run over it. * Be sure to dry the sites well and keep them dry. * DO NOT SOAK IN A TUB/POOL/etc. UNTIL ALL SURGICAL SITES ARE HEALED. DO NOT REMOVE THE GLUE UNTIL THE INCISIONS HEAL. Restrictions: * Limit yourself to diesel technician activity for the first week. * You may walk and go up and down steps. * Avoid excessive bending or movement at the level of the incisions or punctures. Risks and Possible Complications: * Infection/Drainage/Bleeding - Drainage or bleeding from the incisions/puncture site should be minimal. If you have excessive bleeding or drainage, call our office ([phone]) right away. * Pain/Numbness - You may experience some mild pain or soreness at your incision sites. You may also have some numbness around the incisions or into the insides of your thighs. Bruising is normal and should resolve within 2 weeks. * Changes in Appetite or Bowel Habits - Mostly related to anesthesia and pain medication, some patients have reported decreased appetite and/or problems with constipation. These symptoms usually improve over a few weeks. Remembering to take an [id number] stool softener, as directed, will help you to avoid constipation. Call our office and seek emergent treatment if you develop: * Fever or chills * Have a temperature greater than 101 degrees F * Any redness or purulent drainage from your incisions or punctures * Severe abdominal, chest or back pain SKIN IRRITATION: * You may experience some redness and/or swelling in the area where radiation was administered. If any skin irritation occurs, please contact your family physician. You will be receiving a call from the Vascular Surgery Nurse after you are discharged. FOLLOW UP VISIT: It is important for you to keep your follow up appointments with your medical provider. Keep any scheduled doctor appointments. Pending Studies at Discharge: No Stand-Alone Forms: My [facility] [employer], Smoking Cessation Medications and DC Order Prescriptions: New oxycodone-acetaminophen [Percocet] 5-325 mg Tablet 1 - 2 tab PO Q4H PRN (Reason: pain) Qty: 30 RF: 0 Continued torsemide 20 mg Tablet 60 mg PO QAM RF: 0 amiodarone 200 mg Tablet 200 mg PO QAM RF: 0 omeprazole 40 mg Capsule,Delayed Release(Dr/Ec) 40 mg PO QAM RF: 0 aspirin 81 mg Tablet,Delayed Release (Dr/Ec) 81 mg PO QAM RF: 0 potassium chloride 20 mEq Packet 20 meq PO BID RF: 0 metoprolol succinate 25 mg Tablet Extended Release 24 Hr 25 mg PO QAM RF: 0 gabapentin 300 mg Tablet 300 mg PO UD PRN (Reason: pain in the legs) RF: 0 fenofibrate 40 mg Tablet 48 mg PO QAM RF: 0 Eliquis 5 mg Tablet 5 mg PO BID RF: 0 magnesium oxide 400 mg magnesium Tablet 400 mg PO QAM RF: 0 prednisone 50 mg Tablet 50 mg PO DIRECTED RF: 0 Discharge Orders: Discharge Order (Routine); Ordered 02/27/22 Ordered By: Jolly Mendoza Admission Data Admit Date/Time: 02/25/22 16:56 Attending Provider: Gabe Russell Admit Provider: Gabe Russell Primary Care Provider: PCP,NO Other Providers: Arash Sharma ; Rayshawn Mahajan ; Shashi Weber ; Christofer Steve ; Guanako Liu ; Sancho Gomez ; Judd Qiu ; Jose Enrique Tran Other Interventions: Discharge Summary Assessment (RN) Last Done: 02/27/22 14:28
== END 2022-02-27 15:03 | disposition home or self-care (01) | DRG 269 ==
LOC: ASU 09:32 → 1E 16:56
DX: J44.9 Chronic obstructive pulmonary disease, unspecified; N18.9 Chronic kidney disease, unspecified; K21.9 Gastro-esophageal reflux disease without esophagitis; Z79.01 Long term (current) use of anticoagulants; Z87.891 Personal history of nicotine dependence; Z86.16 Personal history of COVID-19; I42.9 Cardiomyopathy, unspecified; I71.4 Abdominal aortic aneurysm, without rupture; I13.0 Hypertensive heart and chronic kidney disease with heart failure and stage 1 through stage 4 chronic kidney disease, or unspecified chronic kidney disease; Z79.82 Long term (current) use of aspirin; E78.5 Hyperlipidemia, unspecified; I25.10 Atherosclerotic heart disease of native coronary artery without angina pectoris; I48.91 Unspecified atrial fibrillation; Z95.2 Presence of prosthetic heart valve; I50.40 Unspecified combined systolic (congestive) and diastolic (congestive) heart failure